=== PATIENT | female | born 2000 | race Caucasian/White ===

== ENCOUNTER 2021-07-10 19:43 | Emergency (ER) | payer OTHER, SELFPAY ==
[2021-07-10 20:00] VITALS: BP 125/69; PULSE 107; RESP 20; TEMP 36.6; O2SAT 99
--- NOTE | 2021-07-10 20:04 | DI.RAD.S_ITS ---
PROCEDURE: XR FOOT LT MIN 3V INDICATIONS: jumped from fence at 3am,l foot swollen TECHNIQUE: 3 views of the foot were acquired. COMPARISON: None. FINDINGS: Bones: No fractures or dislocations. No suspicious bony lesions. Soft tissues: No suspicious soft tissue calcification. Low soft tissue edema at the dorsum of the foot. IMPRESSION: No acute osseous abnormality. If clinical suspicion and/or symptoms persist, additional imaging with repeat plain films, or advanced imaging (e.g. CT, MRI) may be helpful for further assessment. Dictated by: Edgar Long M.D. on 07/10/2021 at 21:12 Approved by: Edgar Long M.D. on 07/10/2021 at 21:13
--- NOTE | 2021-07-10 21:29 | ED.LOWEXIN ---
HPI - Extremity Injury (Lower) General Chief Complaint: Extremity Injury, Lower Stated Complaint: POSS FRACTURED/BROKEN LT FOOT Time Seen by Provider: 07/10/21 21:28 Source: patient Mode of arrival: Wheelchair Limitations: no limitations History of Present Illness HPI Narrative: Patient is a 21-year-old female no past medical history presenting with left foot pain. She states she Jumped from fence while intocxicatec in heels at 3am now has left foot pain. She states it hurts to ambulate. She has absolutely no heel pain no Achilles pain no back pain. It hurts on the top of her foot. No numbness tingling or weakness. Review of Systems Review of Systems Narrative: GENERAL: Denies chills,fever HEENT: Denies throat pain RESPIRATORY: Denies dyspnea, cough, wheezing CARDIOVASCULAR: Denies chest pain, palpitations GASTROINTESTINAL: Denies nausea, vomiting MUSCULOSKELETAL: See HPI SKIN: No rash, no laceration, no pruritus NEUROLOGIC: Denies weakness, dizziness, headache, numbness 8 point review of systems is negative except for those stated above and HPI Patient History Social History Smoking Status: Former smoker Smoking Status: Former smoker alcohol intake frequency: a few times a month Substance Use Type: marijuana Exam Initial Vital Signs Initial Vital Signs: Vital Signs Temperature 98 F 07/10/21 20:00 Pulse Rate 107 H 07/10/21 20:00 Respiratory Rate 20 07/10/21 20:00 Blood Pressure 125/69 07/10/21 20:00 Pulse Oximetry 99 07/10/21 20:00 GENERAL: Alert well-appearing 21-year-old female CARDIOVASCULAR: peripheral pulses in tact, cap refill <2 sec RESPIRATORY: No respiratory distress, speaks in full sentences without difficulty EXTREMITIES: Normal range of motion, no clubbing or edema. Neurovascularly intact Left foot pain on dorsal side of foot in the midfoot range. No obvious bony deformity strong distal pedal pulse intact. No calcaneal pain Achilles tendon intact ankle is nontender. NEUROLOGICAL: Cranial nerves II through XII grossly intact. Normal gait and speech. SKIN: Warm, dry, no petechiae, no rashes or lesions. Course Orders Ordered: ED Orders 07/10/21 20:04 XR foot LT min 3V Stat Vital Signs Vital signs: Vital Signs - 8 hr 07/10/21 20:00 Temperature 98 F Pulse Rate 107 H Respiratory Rate 20 Blood Pressure 125/69 Pulse Oximetry 99 [facility] - Extremity Injury (Lower) Imaging Data Extremity x-ray #1: Radiologist's Impression: PROCEDURE: XR FOOT LT MIN 3V INDICATIONS: jumped from fence at 3am,l foot swollen TECHNIQUE: 3 views of the foot were acquired. COMPARISON: None. FINDINGS: Bones: No fractures or dislocations. No suspicious bony lesions. Soft tissues: No suspicious soft tissue calcification. Low soft tissue edema at the dorsum of the foot. IMPRESSION: No acute osseous abnormality. If clinical suspicion and/or symptoms persist, additional imaging with repeat plain films, or advanced imaging (e.g. CT, MRI) may be helpful for further assessment. Dictated by: Edgar Long M.D. on 07/10/2021 at 21:12 Approved by: Edgar Long M.D. on 07/10/2021 at 21:13 [facility] Narrative Medical decision making narrative: Patient is offered crutches however she opts to use the cane that she brought in. Foot sprain no evidence of fracture on x-ray. Discharge Plan Departure Patient Disposition: Home Clinical Impression: Sprain of foot, left Qualifiers: Encounter type: initial encounter Qualified Code(s): S93.602A - Unspecified sprain of left foot, initial encounter Instructions: DI for Foot Pain Activity Restrictions/Additional Instructions: *You have been diagnosed with left foot sprain *What to do: At this time x-ray does not show any fracture or broken bone. This is likely sprain. Recommend elevate ice and ibuprofen. You may walk as tolerated. You may use a walking assistive device if needed such as a cane or crutches *Continue to take medications as directed Motrin 800 mg every 8 hours if needed for [id number] pain *Follow up with your primary care provider in 2-3 days *Return to ER if you should have increasing pain, redness swelling or any new, worsening or concerning symptoms
== END 2021-07-10 21:42 | disposition home or self-care (01) ==
PROVIDERS: Emergency Provider Emergency Medicine
DX: S93.602A Unspecified sprain of left foot, initial encounter (principal); Y93.39 Activity, other involving climbing, rappelling and jumping off
CPT/HCPCS: 73630; 99281; 99283